=== PATIENT | female | born 1985 | race Caucasian/White ===

== ENCOUNTER → 2017-08-20 | Outpatient (CLI) | payer OTHER ==
[~2017-08-20] VITALS: Ht 162.6 cm; Wt 78.7 kg
[~2017-08-20] MED LIST: MULTI VITAMINS1 TAB PO; ZOLOFT 50MG50 MG PO
[2017-08-20 09:20] VITALS: BP 127/72; PULSE 59
[2017-08-20 09:26] VITALS: BP 108/68; PULSE 70
[2017-08-20 12:15] VITALS: BP 118/66; PULSE 55
== END ==
LOC: COL.RAD 09:00
DX: R59.1 Generalized enlarged lymph nodes (principal)
CPT/HCPCS: 25581

== ENCOUNTER → 2018-07-07 | Outpatient (CLI) | payer OTHER | LOC: MHCPAIN 09:10 | DX: G89.29 Other chronic pain (principal); M47.817 Spondylosis without myelopathy or radiculopathy, lumbosacral region; M54.16 Radiculopathy, lumbar region; M53.3 Sacrococcygeal disorders, not elsewhere classified | CPT/HCPCS: G0463 ==

== ENCOUNTER → 2018-07-16 | Outpatient (CLI) | payer OTHER | LOC: MHCPAIN 09:24 | DX: M47.817 Spondylosis without myelopathy or radiculopathy, lumbosacral region (principal); M54.16 Radiculopathy, lumbar region | CPT/HCPCS: J1100; Q9967 ==

== ENCOUNTER → 2018-08-04 | Outpatient (CLI) | payer OTHER | LOC: MHCPAIN 10:50 | DX: G89.29 Other chronic pain (principal); M47.817 Spondylosis without myelopathy or radiculopathy, lumbosacral region; M54.16 Radiculopathy, lumbar region; M53.3 Sacrococcygeal disorders, not elsewhere classified | CPT/HCPCS: G0463 ==